=== PATIENT | male | born 1940 | race Two or more races ===

== ENCOUNTER → 2017-11-09 | Emergency (ER) | payer OTHER ==
[~2017-11-09] VITALS: Ht 177.8 cm; Wt 81.6 kg
[~2017-11-09] MED LIST: ARICEPT5 MG; LORAZEPAM1 MG; NAMENDA XR1 EACH; STALEVO 75 TAB1 EACH
== END | disposition home or self-care (01) ==
LOC: ER 18:48
DX: S01.422A Laceration with foreign body of left cheek and temporomandibular area, initial encounter (principal); W26.8XXA Contact with other sharp object(s), not elsewhere classified, initial encounter; Y93.89 Activity, other specified; Y92.098 Other place in other non-institutional residence as the place of occurrence of the external cause; Y99.8 Other external cause status

== ENCOUNTER 2019-05-20 13:18 | Emergency (ER) | payer OTHER ==
[~2019-05-20] VITALS: Ht 175.3 cm; Wt 90.7 kg
[2019-05-20] MEDS ORDERED: STALEVO 150 TA1 EACH (13:30)
[2019-05-20] MEDS ORDERED: OMEPRAZOLE20 M1 (13:31)
[2019-05-20] MEDS ORDERED: PROZAC20 MG (13:31)
[2019-05-20] MEDS ORDERED: ARICEPT10 MG (13:31)
[2019-05-20] MEDS ORDERED: MIRAPEX0.25 MG (13:31)
== END 2019-05-20 19:27 | disposition home or self-care (01) ==
LOC: ER 13:18
DX: S01.02XA Laceration with foreign body of scalp, initial encounter (principal); W18.09XA Striking against other object with subsequent fall, initial encounter; Y93.89 Activity, other specified; Y92.091 Bathroom in other non-institutional residence as the place of occurrence of the external cause; Y99.8 Other external cause status

== ENCOUNTER → 2020-08-15 | Emergency (ER) | payer OTHER ==
[~2020-08-15] VITALS: Ht 177.8 cm; Wt 79.4 kg
[~2020-08-15] MED LIST changes: +ACETAMINOPHEN650 M2 PO; +ARICEPT10 MG; +MIRAPEX0.25 MG; +NAMENDA XR28 MG; +OMEPRAZOLE20 M1; +PROZAC20 MG; +STALEVO 150 TA1 EACH
== END | disposition home or self-care (01) ==
LOC: ER 19:33
DX: S05.11XA Contusion of eyeball and orbital tissues, right eye, initial encounter (principal); R04.0 Epistaxis; G30.8 Other Alzheimer's disease; F02.80 Dementia in other diseases classified elsewhere, unspecified severity, without behavioral disturbance, psychotic disturbance, mood disturbance, and anxiety; W18.09XA Striking against other object with subsequent fall, initial encounter; Y93.89 Activity, other specified; Y92.128 Other place in nursing home as the place of occurrence of the external cause; Y99.8 Other external cause status

== ENCOUNTER 2021-02-10 23:57 | Emergency (ER) | payer OTHER ==
[~2021-02-10] VITALS: Ht 177.8 cm; Wt 83.9 kg
[2021-02-11] MEDS ORDERED: STALEVO 200 TA1 EACH (00:04)
[2021-02-11] MEDS ORDERED: MIRAPEX0.25 MG (00:04)
[2021-02-11] MEDS ORDERED: PROZAC20 MG (00:04)
[2021-02-11] MEDS ORDERED: NAMENDA XR28 MG (00:05)
[2021-02-11] MEDS ORDERED: ATIVAN1 M1 (00:05)
[2021-02-11] MEDS ORDERED: ACID REDUCER20 M1 (00:05)
[2021-02-11] MEDS ORDERED: ARICEPT10 MG (00:06)
[2021-02-11] MEDS ORDERED: CEPHALEXIN250 MG/5 M PO (02:21)
== END 2021-02-11 02:39 | disposition home or self-care (01) ==
LOC: ER 23:57
DX: S01.02XA Laceration with foreign body of scalp, initial encounter (principal); W06.XXXA Fall from bed, initial encounter; Y93.89 Activity, other specified; Y92.122 Bedroom in nursing home as the place of occurrence of the external cause; Y99.8 Other external cause status

== ENCOUNTER 2021-03-18 19:26 | Inpatient (IN) | payer OTHER ==
[~2021-03-18] VITALS: Ht 175.3 cm; Wt 81.6 kg
[~2021-03-18 19:26] MED LIST changes: +ACID REDUCER20 M1; +ATIVAN1 M1; +CEPHALEXIN250 MG/5 M PO; +STALEVO 200 TA1 EACH
== END 2021-03-19 10:00 | disposition expired | DRG 329 ==
LOC: ER 19:26 → O/R 21:38 → SEC-K 21:38 → O/R 03-19
PROVIDERS: ADMIT Surgery; ATTEND Surgery
PROC: 0DTG0ZZ Resection of Left Large Intestine, Open Approach (ICD-10-PCS; principal; 2021-03-19)
PROC: 0D1B0Z4 Bypass Ileum to Cutaneous, Open Approach (ICD-10-PCS; 2021-03-19)
PROC: 0BH17EZ Insertion of Endotracheal Airway into Trachea, Via Natural or Artificial Opening (ICD-10-PCS; 2021-03-19)
PROC: 5A1935Z Respiratory Ventilation, Less than 24 Consecutive Hours (ICD-10-PCS; 2021-03-19)
DX: C18.4 Malignant neoplasm of transverse colon (principal); K56.2 Volvulus; J96.01 Acute respiratory failure with hypoxia; A41.9 Sepsis, unspecified organism; R65.21 Severe sepsis with septic shock; G20 Parkinson's disease